=== PATIENT | female | born 1945 | race Caucasian/White ===

== ENCOUNTER 2018-06-23 17:20 | Inpatient (IN) | payer OTHER, MEDICAID ==
[~2018-06-23] VITALS: Ht 160 cm; Wt 78.9 kg
[2018-06-23 17:27] VITALS: BP_SYST 149
[2018-06-23] MEDS ORDERED: NS 1000 ML IV.SOLN IV ONE (18:00)
[2018-06-23 18:25] LABS: BILIRUBIN,URINE NEGATIVE (NEGATIVE); BLOOD, URINE NEGATIVE (NEGATIVE); CLARITY/URINE CLEAR (CLEAR); COLOR,URINE YELLOW (YELLOW); GLUCOSE,URINE NEGATIVE (NEGATIVE); KETONES,URINE NEGATIVE (NEGATIVE); LEUKOCYTE ESTERASE ,URINE NEGATIVE (NEGATIVE); NITRITE, URINE NEGATIVE (NEGATIVE); PROTEIN URINE NEGATIVE (NEGATIVE); UROBILINOGEN,URINE 0.2 (0.2-1.0)
[2018-06-23] MEDS ORDERED: PROMETHAZINE 6.25 MG/ CODEINE 10 MG/ 5 ML PO ONE (18:45)
[2018-06-23 18:55] LABS: BASOPHILS # (AUTO) 0.1 K/uL (0.0-0.2); BASOPHILS % (AUTO) 1.1 % (0.0-2.0); EOSINOPHILS # (AUTO) 0.2 K/uL (0.0-0.4); HEMATOCRIT 37.9 % (36-48); HEMOGLOBIN 12.7 g/dL (12.0-16.0); LYMPHOCYTES # (AUTO) 2.3 K/uL (1.0-5.5); LYMPHOCYTES % (AUTO) 25.9 % (20.5-51.5); MEAN CORPUSCULAR HEMOGLOBIN 32 pg (27-31); MEAN CORPUSCULAR HGB CONC 34 % (32-36); MEAN CORPUSCULAR VOLUME 95 fL (79.0-98.0); MONOCYTES # (AUTO) 0.8 K/uL (0.0-1.0); MONOCYTES % (AUTO) 9.1 % (1.7-9.3); NEUTROPHILS # (AUTO) 5.5 K/uL (1.8-7.7); NEUTROPHILS % (AUTO) 61.9 % (40.0-70.0); PLATELET COUNT (AUTO) 330 K/uL (130-430); RED BLOOD CELL COUNT(AUTO) 4.01 MIL/uL (4.2-6.2); WHITE BLOOD COUNT (AUTO) 8.9 K/uL (4.8-10.8)
[2018-06-23 19:02] LABS: ANION GAP 8 (5-15); CALCIUM 9.7 mg/dL (8.4-11.0); CHLORIDE 91 mmol/L (98-107); CREATININE 0.57 mg/dL (0.55-1.30); GLUCOSE 73 mg/dL (70-99); POTASSIUM 3.1 mmol/L (3.5-5.1); SODIUM SERUM 127 mmol/L (136-145); UREA NITROGEN, BLOOD 9 mg/dL (8-21)
[2018-06-23 19:07] LABS: ALANINE AMINOTRANSFERASE 24 U/L (12-78); ASPARTATE AMINOTRANSFERASE 18 U/L (10-37); TOTAL BILIRUBIN 0.5 mg/dL (0.0-1.0)
[2018-06-23] MEDS ORDERED: POTASSIUM CHLORIDE 20 MEQ TAB.PRT.SR PO ONE (19:15)
[2018-06-23] MEDS ORDERED: NAPR-688 PO (19:25)
[2018-06-23] MEDS ORDERED: ATEN-41 PO (19:25)
[2018-06-23] MEDS ORDERED: GLU500 PO (19:25)
[2018-06-23] MEDS: NACL 0.9% 1,000 ML IV SCH (19:40)
[2018-06-23 19:50] VITALS: BP_SYST 123
[2018-06-23 23:30] VITALS: BP_SYST 124
[2018-06-24] MEDS ORDERED: ONDANSETRON HCL 4 MG/2 ML VIAL IVP PRN (00:45)
[2018-06-24] MEDS ORDERED: MORPHINE 4 MG/ML INJ. SYRINGE IVP PRN (00:45)
[2018-06-24] MEDS ORDERED: DEXTROSE 50% JECT 50 ML DISP.SYRIN IVP PRN ×2 (01:00)
[2018-06-24] MEDS ORDERED: INSULIN REGULAR, HUMAN 100 UNITS/ML, 10 ML VIAL (novoLIN R) SUBCUT PRN (01:00)
[2018-06-24] MEDS ORDERED: ALBUTEROL SULFATE 0.083% 2.5 MG/3 ML VIAL.NEB INH PRN (01:15)
[2018-06-24] MEDS: LORazepam 1 MG TABLET PO PRN ×2 (01:33→20:32)
[2018-06-24] MEDS: guaiFENesin 200 MG/CODEINE 20 MG/ 10 ML UDC PO PRN ×2 (05:32→14:39)
[2018-06-24] MEDS: NACL 0.9% 1,000 ML IV SCH ×2 (05:32→14:25)
[2018-06-24 05:40] VITALS: BP_SYST 124
[2018-06-24 07:29] LABS: BASOPHILS % (AUTO) 0.2 % (0.0-2.0); EOSINOPHILS # (AUTO) 0.1 K/uL (0.0-0.4); EOSINOPHILS % (AUTO) 1.8 % (0.0-4.0); HEMATOCRIT 34.6 % (36-48); HEMOGLOBIN 11.8 g/dL (12.0-16.0); MEAN CORPUSCULAR HEMOGLOBIN 32 pg (27-31); MEAN CORPUSCULAR HGB CONC 34 % (32-36); MEAN CORPUSCULAR VOLUME 94 fL (79.0-98.0); MONOCYTES # (AUTO) 0.7 K/uL (0.0-1.0); MONOCYTES % (AUTO) 10.4 % (1.7-9.3); NEUTROPHILS % (AUTO) 57.6 % (40.0-70.0); PLATELET COUNT (AUTO) 282 K/uL (130-430); RED BLOOD CELL COUNT(AUTO) 3.69 MIL/uL (4.2-6.2); RED CELL DISTRIBUTION WIDTH 13.4 % (9.0-15.0); WHITE BLOOD COUNT (AUTO) 6.8 K/uL (4.8-10.8)
[2018-06-24 07:38] LABS: ANION GAP 6 (5-15); CALCIUM 8.8 mg/dL (8.4-11.0); CHLORIDE 101 mmol/L (98-107); GLUCOSE 111 mg/dL (70-99); POTASSIUM 3.5 mmol/L (3.5-5.1); SODIUM SERUM 134 mmol/L (136-145); UREA NITROGEN, BLOOD 7 mg/dL (8-21)
[2018-06-24 07:54] LABS: THYROID STIMULATING HORMONE 2.47 uIu/mL (0.36-3.74)
[2018-06-24 08:00] VITALS: BP_SYST 116
[2018-06-24] MEDS: cefTRIAXone 1 GM IVPB PREMIX 50 ML IV SCH (08:33)
[2018-06-24] MEDS: OSELTAMIVIR PHOSPHATE 75 MG CAPSULE PO SCH ×2 (08:33→20:32)
[2018-06-24] MEDS: ATENOLOL 25 MG TABLET(TENORMIN) PO SCH (08:34)
[2018-06-24] MEDS: ENOXAPARIN SODIUM 40 MG/0.4 ML SYRINGE SUBCUT SCH (08:34)
[2018-06-24] MEDS: ACETAMINOPHEN 325 MG TABLET PO PRN ×2 (08:44→14:32)
[2018-06-24] MEDS: AZITHROMYCIN 500 MG in NS 250 ML IV SCH (09:28)
[2018-06-24 12:02] VITALS: BP_SYST 108
[2018-06-24 16:02] VITALS: BP_SYST 124
[2018-06-24] MEDS: metFORMIN HCL 500 MG TABLET PO SCH (17:38)
[2018-06-24 20:00] VITALS: BP_SYST 133
[2018-06-25] VITALS: BP_SYST 122
[2018-06-25] MEDS: NACL 0.9% 1,000 ML IV SCH ×2 (00:37→11:15)
[2018-06-25 08:00] VITALS: BP_SYST 113
[2018-06-25] MEDS: metFORMIN HCL 500 MG TABLET PO SCH (08:38)
[2018-06-25] MEDS: cefTRIAXone 1 GM IVPB PREMIX 50 ML IV SCH (08:41)
[2018-06-25] MEDS: AZITHROMYCIN 500 MG in NS 250 ML IV SCH (09:43)
[2018-06-25] MEDS: OSELTAMIVIR PHOSPHATE 75 MG CAPSULE PO SCH (09:44)
[2018-06-25] MEDS: ATENOLOL 25 MG TABLET(TENORMIN) PO SCH (09:44)
[2018-06-25] MEDS: ENOXAPARIN SODIUM 40 MG/0.4 ML SYRINGE SUBCUT SCH (09:45)
[2018-06-25] MEDS: ACETAMINOPHEN 325 MG TABLET PO PRN (10:07)
[2018-06-25] MEDS ORDERED: LEVO250T2 PO (11:09)
[2018-06-25] MEDS ORDERED: ALBU8.5H8 INH (11:10)
[2018-06-25] MEDS ORDERED: LACT1CAP57 PO (11:10)
[2018-06-25] MEDS ORDERED: MUCINEX COUGH PO (11:12)
[2018-06-25 11:20] VITALS: BP_SYST 136
[2018-06-25 12:00] VITALS: BP_SYST 136
== END 2018-06-25 14:05 | disposition home or self-care (01) | DRG 194 ==
LOC: SED 17:20 → STU 19:14
PROVIDERS: ADMIT Internal Medicine; ATTEND Internal Medicine
DX: J18.9 Pneumonia, unspecified organism (principal); E87.1 Hypo-osmolality and hyponatremia; E87.6 Hypokalemia; M54.9 Dorsalgia, unspecified; G89.29 Other chronic pain; E11.9 Type 2 diabetes mellitus without complications; I10 Essential (primary) hypertension; J45.909 Unspecified asthma, uncomplicated; E78.5 Hyperlipidemia, unspecified; E66.9 Obesity, unspecified; Z68.30 Body mass index [BMI] 30.0-30.9, adult
CPT/HCPCS: 36415; 71045; 80048; 80053; 81003; 82962; 83036; 83605; 84443-TC; 85025; 86710; 87040-TC; 87081; 87086; 94640; 96361; 96365; 99285; G9035; J0456; J0696; J1650; J1815; J1956; J7030; J7042; J7050; J7613